=== PATIENT | female | born 1980 | race Caucasian/White ===

== ENCOUNTER 2018-03-06 14:54 | Inpatient (IN) | payer MEDICAID ==
[2018-03-06 16:00] LABS: RUPTURE FETAL MEMBRANES POSITIVE (NEGATIVE)
[2018-03-06 16:29] LABS: ADD MAN DIFF? NO
[2018-03-06 16:30] LABS: BASOPHILS % 0.2 % (0.0-2.0); EOSINOPHILS % 0.3 % (0.0-7.0); HEMATOCRIT 34.8 % (37.0-47.0); HEMOGLOBIN 11.8 g/dl (12.0-16.0); LYMPHOCYTES # 1.3 10^3/ul (0.8-2.9); LYMPHOCYTES % 12.5 % (15.0-51.0); MEAN CORPUSCULAR HEMOGLOBIN 30.7 pg (29.0-33.0); MEAN CORPUSCULAR HGB CONC 33.9 g/dl (32.0-37.0); MEAN CORPUSCULAR VOLUME 90.6 fl (82.0-101.0); MEAN PLATELET VOLUME 12.4 fl (7.4-10.4); MONOCYTE # 0.4 10^3/ul (0.3-0.9); MONOCYTES % 4.3 % (0.0-11.0); NEUTROPHIL # 8.4 10^3/ul (1.6-7.5); NEUTROPHILS % 82.3 % (39.0-77.0); PLATELET COUNT 131 10^3/UL (140-415); RED BLOOD COUNT 3.84 10^6/ul (4.20-5.40); RED CELL DISTRIBUTION WIDTH 14.3 % (11.5-14.5)
[2018-03-06 16:30] LABS: WHITE BLOOD COUNT 10.2 10^3/ul (4.8-10.8)
[2018-03-06] MEDS ORDERED: METHYLERGONOVINE 0.2 MG INJ IM ×2 (16:30→22:30)
[2018-03-06] MEDS ORDERED: OXYTOCIN 30 UNITS/LR 500 ML IV ×3 (16:30→22:30)
[2018-03-06] MEDS ORDERED: CEFAZOLIN 2 GM/50 ML (PMX) 50 ML IV (16:30)
[2018-03-06] MEDS ORDERED: MISOPROSTOL 200 MCG TAB PR ×2 (16:30→22:30)
[2018-03-06] MEDS ORDERED: CARBOPROST 250 MCG INJ IM ×2 (16:30→22:30)
[2018-03-06] MEDS: LACTATED RINGER'S 1,000 ML IV ×4 (16:41→22:04)
[2018-03-06] MEDS: AMPICILLIN 2 GM/NS (PMX) 100 ML IVPB (17:25)
[2018-03-06 17:45] LABS: INR 0.98; PROTIME 13.1 Sec (11.9-14.9)
[2018-03-06 17:46] LABS: PARTIAL THROMBOPLASTIN TIME 31.2 Sec (25.0-35.0)
[2018-03-06] MEDS ORDERED: BUPIVACAINE 0.75%/DEXT (SPINAL) 2 ML INJ (20:31)
[2018-03-06] MEDS ORDERED: FENTAnyl 50 MCG/ML VIAL (20:32)
[2018-03-06] MEDS ORDERED: morphine SULFATE/PF (10 MG/10 ML) INJ (20:32)
[2018-03-06 20:35] LABS: HEPATITIS B SURFACE ANTIGEN NEGATIVE (NEGATIVE)
[2018-03-06] MEDS ORDERED: PHENYLephrine (100 MCG/ML) 5ML SYG (20:38)
[2018-03-06] MEDS ORDERED: DEXAMETHASONE 4 MG/ML 1 ML INJ (20:42)
[2018-03-06] MEDS ORDERED: ONDANSETRON 4 MG INJ (20:42)
[2018-03-06 20:44] LABS: HIV 1&2 ANTIBODY NEGATIVE (NEGATIVE)
[2018-03-06] MEDS ORDERED: HYDROmorphONE 0.5 MG/0.5 ML SYG IV (21:00)
[2018-03-06] MEDS ORDERED: AMPICILLIN 1 GM/NS (PMX) 50 ML IVPB (21:00)
[2018-03-06] MEDS ORDERED: DIPHENHYDRAMINE 50 MG INJ IV (21:00)
[2018-03-06] MEDS ORDERED: ZOLPIDEM 5 MG TAB PO (21:00)
[2018-03-06] MEDS ORDERED: NALOXONE (0.4 MG/ML) INJ IV (21:00)
[2018-03-06] MEDS: OXYTOCIN 30 UNITS/LR 500 ML IV (22:24)
[2018-03-06] MEDS: KETOROLAC 30 MG INJ IV (23:27)
[2018-03-07] MEDS: OXYTOCIN 30 UNITS/LR 500 ML IV (03:20)
[2018-03-07] MEDS: LACTATED RINGER'S 1,000 ML IV ×3 (06:04→22:04)
[2018-03-07] MEDS: KETOROLAC 30 MG INJ IV ×2 (06:32→20:39)
[2018-03-07 08:08] LABS: ADD MAN DIFF? NO
[2018-03-07 08:17] LABS: BASOPHILS % 0.1 % (0.0-2.0); HEMATOCRIT 27.5 % (37.0-47.0); HEMOGLOBIN 9.2 g/dl (12.0-16.0); LYMPHOCYTES % 7.8 % (15.0-51.0); MEAN CORPUSCULAR HEMOGLOBIN 30.4 pg (29.0-33.0); MEAN CORPUSCULAR HGB CONC 33.5 g/dl (32.0-37.0); MEAN CORPUSCULAR VOLUME 90.8 fl (82.0-101.0); MEAN PLATELET VOLUME 12.9 fl (7.4-10.4); MONOCYTE # 0.4 10^3/ul (0.3-0.9); NEUTROPHIL # 10.9 10^3/ul (1.6-7.5); NEUTROPHILS % 88.8 % (39.0-77.0); PLATELET COUNT 121 10^3/UL (140-415); RED BLOOD COUNT 3.03 10^6/ul (4.20-5.40); RED CELL DISTRIBUTION WIDTH 14.4 % (11.5-14.5)
[2018-03-07 08:17] LABS: WHITE BLOOD COUNT 12.3 10^3/ul (4.8-10.8)
[2018-03-07] MEDS: LANOLIN 7 GM TUBE TOP (20:39)
[2018-03-07] MEDS ORDERED: OXYCODONE/ACETAMINOPHEN (5/325) TAB PO (20:40)
[2018-03-08] MEDS: OXYCODONE/ACETAMINOPHEN (5/325) TAB PO (03:38)
[2018-03-08] MEDS: LACTATED RINGER'S 1,000 ML IV ×2 (06:04→14:04)
[2018-03-08] MEDS: IBUPROFEN 800 MG TAB PO ×4 (06:22→17:18)
[2018-03-08] MEDS: FERROUS SULFATE (EC) 325 MG TAB PO (21:07)
[2018-03-09] MEDS: IBUPROFEN 800 MG TAB PO ×4 (00:01→17:28)
[2018-03-09] MEDS: FERROUS SULFATE (EC) 325 MG TAB PO (09:12)
[2018-03-09] MEDS: DIPHTH/TET/ACEL PERTUSS (ADULT) 0.5 ML VIAL IM* (09:13)
[2018-03-10 13:31] LABS: RUBELLA ANTIBODY - IGM <20.00 AU/mL
== END 2018-03-09 19:20 | disposition home or self-care (01) | DRG 766 ==
LOC: OBT 14:54 → PP1 03-07 01:00 → L-D 14:55 → OBT 16:16 → L-D 16:16
PROVIDERS: Obstetrics & Gynecology
PROC: 10D00Z1 Extraction of Products of Conception, Low, Open Approach (ICD-10-PCS; principal; 2018-03-06)
DX: O34.211 Maternal care for low transverse scar from previous cesarean delivery (principal); Z3A.37 37 weeks gestation of pregnancy; Z37.0 Single live birth
CPT/HCPCS: 84112; 85025; 85610; 85730; 86592; 86703; 86762; 86850; 86900; 86901; 87340; 99464